=== PATIENT | female | born 1950 ===

== ENCOUNTER 2023-06-16 07:44 | Day surgery (SDC) | payer OTHER ==
[~2023-06-16] VITALS: Ht 160 cm; Wt 80.3 kg
[~2023-06-16 07:44] MED LIST: ceFAZolin SODIUM 2 GM in D5W 100 ML IV ONE
[2023-06-16] MEDS ORDERED: fentaNYL CITRATE/PF 100 MCG/2 ML AMP ONE (10:15)
[2023-06-16] MEDS ORDERED: MIDAZOLAM HCL 2 MG/2 ML VIAL (VERSED) ONE (10:16)
[2023-06-16] MEDS ORDERED: ONDANSETRON HCL 4 MG/2 ML VIAL IVP PRN ×2 (10:30→11:15)
[2023-06-16] MEDS ORDERED: HYDROmorphone 1 MG/ML INJ. CARTRIDGE IVP PRN (10:30)
[2023-06-16] MEDS ORDERED: LR 1,000 ML IV SCH (10:30)
[2023-06-16] MEDS ORDERED: MEPERIDINE HCL/PF 25 MG/ML DISP.SYRIN IVP PRN (10:30)
[2023-06-16] MEDS ORDERED: MORPHINE 4 MG INJ. 4 MG/ML VIAL IVP PRN (10:30)
[2023-06-16] MEDS ORDERED: OXYCODONE/ACETAMINOPHEN 5-325 TABLET PO PRN ×2 (11:15)
[2023-06-16] MEDS ORDERED: HYDROcodone/ACETAMIN 5-325 MG TAB (NORCO/ VICODIN) PO PRN (11:15)
[2023-06-16 12:14] VITALS: O2SAT 98
[2023-06-16 12:34] VITALS: PULSE 55; RESP 18; TEMP 97
[2023-06-16 16:51] VITALS: BP_SYST 118
== END 2023-06-16 13:20 | disposition home or self-care (01) ==
LOC: SDS 07:44 → SMU 07:45 → SDS 13:20
PROVIDERS: ATTEND Specialist
DX: N95.0 Postmenopausal bleeding (principal); D25.0 Submucous leiomyoma of uterus; R93.89 Abnormal findings on diagnostic imaging of other specified body structures; I10 Essential (primary) hypertension; R73.03 Prediabetes; Z78.0 Asymptomatic menopausal state; K21.9 Gastro-esophageal reflux disease without esophagitis; E66.9 Obesity, unspecified; Z79.899 Other long term (current) drug therapy; Z68.31 Body mass index [BMI] 31.0-31.9, adult
CPT/HCPCS: 87081; 58558; 88305; J3465; J3010; J7060; C1819